=== PATIENT | male | born 2000 ===

== ENCOUNTER 2018-06-13 04:00 | Emergency (ER) | payer OTHER ==
[~2018-06-13] VITALS: Ht 188 cm; Wt 65.9 kg
[2018-06-13 04:03] VITALS: TEMP 97.9
[2018-06-13 04:40] LABS: BASO % 0.5 % (0.0-2.0); EOS # 0.3 (0.0-0.7); EOS % 3.5 % (0-4.0); GRAN # 4.7 (1.4-6.5); HEMATOCRIT 38.9 % (36.0-47.0); HEMOGLOBIN 12.7 g/dl (12.5-16.1); LYMPH # 3.1 (1.2-3.4); LYMPH % 35.8 % (20.0-51.0); MEAN CELL VOLUME 65 fl (80.0-95.0); MEAN CORPUSCULAR HEMOGLOBIN 21 pg (26.0-32.0); MEAN CORPUSCULAR HGB CONC 33 g/dl (33.0-37.0); MEAN PLATELET VOLUME 11.5 fl (7.4-10.4); MONO # 0.6 (0.1-0.6); PLATELET COUNT 157 K/mm3 (130-400); RED BLOOD COUNT 5.97 M/mm3 (4.20-5.60); REDCELL DISTRIBUTION WIDTH-CV 15.9 % (11.5-14.5)
[2018-06-13 04:48] LABS: ALBUMIN 4.2 gm/dL (3.5-5.0); BILIRUBIN,TOTAL 2.4 mg/dL (0.0-1.0); CALCIUM 7.8 mg/dL (8.4-10.2); CREATININE, serum 1.04 mg/dL (0.66-1.25); POTASSIUM 3.6 mmol/L (3.4-5.0); TOTAL PROTEIN 7.1 gm/dL (6.4-8.2)
[2018-06-13] MEDS ORDERED: CEPHALEXIN500 M1 PO (07:22)
[2018-06-13] MEDS ORDERED: NORCO 325 MG-51 TAB PO (07:22)
[2018-06-13 07:47] VITALS: BP 122/76; PULSE 78
== END 2018-06-13 07:48 | disposition home or self-care (01) ==
LOC: COL.ER 04:00
PROVIDERS: Emergency Medicine
DX: S06.0X9A Concussion with loss of consciousness of unspecified duration, initial encounter (principal); S02.2XXA Fracture of nasal bones, initial encounter for closed fracture; S01.112A Laceration without foreign body of left eyelid and periocular area, initial encounter; F10.129 Alcohol abuse with intoxication, unspecified; W10.9XXA Fall (on) (from) unspecified stairs and steps, initial encounter; Y90.8 Blood alcohol level of 240 mg/100 ml or more
CPT/HCPCS: J0690

== ENCOUNTER 2018-06-18 14:57 | Emergency (ER) | payer OTHER ==
[~2018-06-18 14:57] MED LIST: CEPHALEXIN500 M1 PO; NORCO 325 MG-51 TAB PO
[2018-06-18 15:02] VITALS: BP 141/72; PULSE 83; TEMP 97.7
== END 2018-06-18 15:47 | disposition home or self-care (01) ==
LOC: COL.ER 14:57
DX: S01.112D Laceration without foreign body of left eyelid and periocular area, subsequent encounter (principal); X58.XXXD Exposure to other specified factors, subsequent encounter